=== PATIENT | female | born 1995 | race Caucasian/White ===

== ENCOUNTER 2025-04-15 05:13 | Emergency (ER) | payer OTHER ==
[~2025-04-15] VITALS: Ht 147.3 cm; Wt 80.0 kg
[2025-04-15 05:25] VITALS: O2SAT 100
[2025-04-15 06:11] LABS: BASOPHILS % 0.1 % (0.0-2.0); EOSINOPHILS % 0.0 % (0.0-5.0); HEMATOCRIT. 42.4 % (36.0-48.0); HEMOGLOBIN. 14.4 g/dL (12.0-16.0); LYMPHOCYTES % 36.4 % (20.0-50.0); MEAN PLATELET VOLUME 8.8 fl (7.4-10.4); MONOCYTES % 5.5 % (2.0-8.0); NEUTROPHILS % 58.0 % (40.0-76.0); PLATELET 230 x1000/uL (130-400); RED BLOOD CELL COUNT 4.99 mill/uL (4.2-5.4); RED CELL DISTRIBUTION WIDTH 13.7 % (11.6-14.6)
[2025-04-15] MEDS ORDERED: DIPHENHYDRAMINE 50MG CAPSULE PO ONE (06:15)
[2025-04-15 06:25] LABS: CREATININE 0.8 mg/dL (0.6-1.0); UREA NITROGEN BLOOD 13 mg/dL (9-23)
[2025-04-15] MEDS: FAMOTIDINE 20MG TABLET PO SCH (06:25)
[2025-04-15] MEDS: PREDNISONE 20MG TABLET PO ONE (06:25)
[2025-04-15] MEDS: DIPHENHYDRAMINE 25MG CAPSULE PO NR (06:33)
[2025-04-15] MEDS: EPINEPHRINE 1:1000 1 MG/ML AMP SUBCUT ONE (08:19)
[2025-04-15] MEDS ORDERED: P20 MT (13:08)
[2025-04-15] MEDS ORDERED: EPIN0.3A3 IM (13:08)
[2025-04-15] MEDS ORDERED: DIPH50CA42 MT (13:08)
[2025-04-15] MEDS ORDERED: FAMO-135 MT (13:08)
[2025-04-15 13:29] VITALS: BP 116/76; PULSE 84; RESP 21; TEMP 36.8; O2SAT 99
== END 2025-04-15 13:34 | disposition home or self-care (01) ==
LOC: ER 05:13
DX: L50.9 Urticaria, unspecified (principal); Z79.52 Long term (current) use of systemic steroids
CPT/HCPCS: 99285; 80048; 81025; 85025; 36415; 96372; Q0163; J7512; J3490